=== PATIENT | male | born 2000 | race Caucasian/White ===

== ENCOUNTER 2022-09-21 13:40 | Emergency (ER) | payer OTHER, SELFPAY ==
[2022-09-21 13:41] VITALS: BP 148/81; PULSE 103; RESP 16; TEMP 36.3; O2SAT 98; BMI 24.3
--- NOTE | 2022-09-21 16:03 | EX.ED.GENINJ ---
HPI History of Present Illness Chief Complaint: Laceration Detail of Chief Complaint: Scalp laceration Informant: patient Onset/Context/Timing Onset: Hours Mechanism/Context: Blunt Injury (In weight room. 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 He presents with laceration to his scalp. This occurred while he was using a tricep machine. He was unaware there is a hook on the machine. When he pulled down the hook hit him on the head. He was not dazed. He did not have loss of conscious. He is not on antiplatelet or anticoagulant. He denies visual, ocular or auditory symptoms. He denies neck pain. Denies paresthesia, anesthesia or motor. Tetanus Immunization: 5-10 years Prior similar symptoms: No Recent Illness/Hospitalization: No PFSH PFSH Medical History no medical history no medical history Home Medications lisdexamfetamine 40 mg capsule (Vyvanse) 40 mg PO DAILY 09/21/22 [History Last Taken Unknown] Allergy/AdvReac Type Severity Reaction Status Date / Time No Known Allergies Allergy Verified 09/21/22 13:43 Surgical History H/O hernia repair Hx of appendectomy Social History (Updated 09/21/22 @ 16:[address] Noman Linares MD) household members: family housing: other details: [employer] student on football team Smoking Status: Never smoker ROS ROS ED Eyes Eyes: Denies blurry vision or change in vision ENT ENT ED: Denies ear pain, rhinorrhea or sore throat Musculoskeletal Musculoskeletal: Denies arthralgias, back pain, myalgias or neck pain Integumentary Reports other Details: Scalp laceration ; Denies Abrasions or rash Neurologic Neurologic: Denies headache(s), paresthesias or weakness Hematologic/Lymphatic Hematologic/Lymphatic: Denies easy bleeding or easy bruising EXAM Physical Exam Const Vital Signs: 09/21/22 13:41 Temperature 97.4 F L Temperature Source Temporal Pulse Rate 103 H Respiratory Rate 16 Blood Pressure 148/81 H Blood Pressure Mean 103 Pulse Ox 98 Oxygen Delivery Method Room Air Positive well nourished and well developed General Appearance ED: well developed and NAD HEENT HEENT Narrative: 2.2 cm laceration scalp. There is no palpable oppression. There is no clinical findings of basilar skull fracture. There is no facial trauma. trauma Nose: Negative for septum abnormal Eyes PERRL and EOMs intact bilaterally General Eye ED: Yes other Other Details: There is no subconjunctival hemorrhage noted. There is no trauma to the eyelids or eyelashes. Neck full ROM General: Negative for tenderness Resp normal respiratory effort Cardio regular rhythm and S1 normal heart sound Extremity normal to inspection and full ROM Neuro oriented x3, CN's II-XII intact bilaterally and moves all extremities Psych mental status grossly normal and thought process normal Skin Skin Narrative: Scalp laceration predescribed PROC Procedures Other Procedures Procedure(s): Area was cleansed with surgical lens. The wound was anesthetized with 1% lidocaine by local duration. Total of 1.2 cc was instilled. The wound was cleaned thoroughly. There was no foreign body noted. 4 ivonne were placed with good cosmesis hemostasis. MDM MDM MDM Narrative Medical decision making narrative: Patient has a laceration which will require repair. Please read procedure note. Per the [place] CT head rule imaging is not required. Discharge Plan Triage Chief Complaint: Laceration ED Provider: Noman Linares Dx/Rx/DC Orders Clinical Impression: Laceration of scalp Instructions: ED Laceration Scalp Stitches or Mcdougal Prescriptions: No Action Vyvanse 40 mg Capsule 40 mg PO DAILY Primary Care Provider: Ventura Henry,Out of [facility] 10 Day for suture removal Ventura Henry,Out of [Primary Care Provider] - Activity Restrictions/Additional Instructions: 1. Apply bacitracin ointment 3 times a day. 2. Keep area clean. Disposition Disposition: Home, Self Care
[2022-09-21] MEDS: Lidocaine 2% (20 ml mdv) 20 ML Vial INFILT (17:19)
== END 2022-09-21 17:27 | disposition home or self-care (01) ==
LOC: ED 16:56
PROVIDERS: Emergency Provider Emergency Medicine; Visit Provider Emergency Medicine
DX: S01.01XA Laceration without foreign body of scalp, initial encounter (principal); W24.0XXA Contact with lifting devices, not elsewhere classified, initial encounter; Y93.B9 Activity, other involving muscle strengthening exercises; Y92.39 Other specified sports and athletic area as the place of occurrence of the external cause
CPT/HCPCS: 12001; 99283; A4216